=== PATIENT | female | born 1955 | race Two or more races ===

== ENCOUNTER 2020-06-18 08:30 | Day surgery (SDC) | payer OTHER ==
[2020-06-18] VITALS (10 sets, daily range): BP systolic 117–158; BP diastolic 56–70
[~2020-06-18] VITALS: Ht 149.9 cm; Wt 69.4 kg
--- NOTE | 2020-06-18 07:24 | Short Stay Surgery H&P ---
History of Present Illness History of Present Illness Chief Complaint Abdominal pains/GERDS. HPI Mandy Arita is a 64 year old female who was admitted on for Gerds, Gastritis Patient History Allergies: Coded Allergies: No Known Allergies (Unverified , 06/17/20) PAST MEDICAL HISTORY: (1) History of (2) History of breast biopsy Medication History Scheduled [[id number]], Unknown Dose PO BID, (Reported) Scheduled PRN Acetaminophen* (Tylenol Extra Strength*), 500 MG ORAL PRN PRN for Mild Pain/Temp > 100.5, (Reported) Review of Systems Cardiovascular: Reports: no symptoms Respiratory: Reports: no symptoms Skeletal: Reports: trauma Gastrointestinal: Reports: gastro esophageal reflux disease Genitourinary: Reports: no symptoms Neurologic: Reports: no symptoms Endocrine: Reports: no symptoms Hematologic: Reports: no symptoms Physical Exam Skin: normal HENT: normal Heart: normal Lungs: normal Abdomen: abnormal Extremities: normal Genitourinary: normal Plan Plan of Care Upper GI endoscopy with biopsy Preop Interventions None. Summary of Findings See the reports Attestation Are the patient's medical conditions optimized for surgery? Attestation Response: yes Rohit Sales MD Jun 18, 2020 07:24
--- NOTE | 2020-06-18 07:25 | Pre-Procedure Note/Attestation ---
Pre-Procedure Note/Attestation Complete Prior to Procedure Planned Procedure: left Procedure Narrative: Examination of the upper GI tract via endoscopy with obtaining biopsy. Indications for Procedure Pre-Operative Diagnosis: R/O Gastritis/peptic ulcer/esophagitis. Attestation I attest that I discussed the nature of the procedure; its benefits; risks and complications; and alternatives (and the risks and benefits of such alternatives), prior to the procedure, with the patient (or the patient's legal patient registration representative). I attest that, if there was a reasonable possibility of needing a blood transfusion, the patient (or the patient's legal patient registration representative) was given the [facility] standardized written summary, pursuant to the [place] Blood Safety Act ([place] Health and Safety Code # 1645, as amended). I attest that I re-evaluated the patient just prior to the surgery and that there has been no change in the patient's H&P, except as documented below: Rohit Sales MD Jun 18, 2020 07:25
--- NOTE | 2020-06-18 07:27 | Discharge Instructions ---
Discharge Instructions Discharge Instructions Follow up with: No need to follow with this doctor. Call to get report through mail. For Congestive Heart Failure Reminder Report to your physician any weight gain of 5 pounds or more in one week. Rohit Sales MD Jun 18, 2020 07:27
[~2020-06-18 08:30] MED LIST: LR 1000ml 1,000 ML IVLG SCH; TYLENOL EXTRA500 MG ORAL; [UNRECOGNIZED DRUG - CODE] PO
[2020-06-18] MEDS ORDERED: LR 1000ml ONE (09:30)
[2020-06-18] MEDS ORDERED: Lidocaine 1% MPF 10mg/ml 5ml ONE (09:30)
--- NOTE | 2020-06-18 09:47 | Endoscopy Procedure Note ---
Endoscopy Procedure Note General Indication for Procedure: Abdomial pains/GERDs/diarrhea Procedures Performed: EGD - Mild gastrodoudenitis. Biopsies obtained from gastric body, duodenal bulb and descending duodenum. Specimen: yes Pt Tolerated Procedure Well: Yes Estimated Blood Loss: none Anesthesia Anesthesiologist: Ms. Reyes, appliance counselor Anesthesia: moderate sedation Medications Medication Given: see anesthesia record Inserted Devices Implant(s) used?: No Quality Quality of Bowel Preparation: Excellent Was there any complications?: No GI Core Measures 50 yrs or older w/o bx or poly: Not Applicable 10yrs. F/U recommended: Not Applicable If not recommended, why?: Med reason:<3 yrs.: System Reason:<3 yrs.: Rohit Sales MD Jun 18, 2020 09:47
--- NOTE | 2020-06-18 10:00 | Immediate Post-Op Evaluation ---
Immediate Post-Op Evalulation Immediate Post-Op Evalulation Procedure: egd Date of Evaluation: Jun 18, 2020 Time of Evaluation: 09:59 IV Fluids: 500 Blood Pressure Systolic: 127 Blood Pressure Diastolic: 77 Pulse Rate: 68 Respiratory Rate: 14 O2 Sat by Pulse Oximetry: 97 Temperature (Fahrenheit): 97.1 Nausea: No Vomiting: No Complications none Patient Status: awake, reacts, patent Hydration Status: adequate Drug: none MairanriElena clark CRNA Jun 18, 2020 10:00
--- NOTE | 2020-06-18 10:03 | Anethesia Preoperative Eval ---
Anesthesia Pre-op PMH/ROS General Date of Evaluation: Jun 18, 2020 Time of Evaluation: 09:30 Anesthesiologist: katherine ASA Score: ASA 2 Mallampati Score Class I : Soft palate, uvula, fauces, pillars visible Class II: Soft palate, uvula, fauces visible Class III: Soft palate, base of uvula visible Class IV: Only hard plate visible Mallampati Classification: Class II Surgeon: Carolyn Diagnosis: GERD Surgical Procedure: EGD Anesthesia History: none Family History: no anesthesia problems Allergies: Coded Allergies: No Known Allergies (Unverified , 06/18/20) Medications: see eMAR Patient NPO?: Yes NPO Date: Jun 18, 2020 NPO Time: 00:01 Past Medical History Cardiovascular: Denies: HTN, CAD, NC, valve dz, arrhythmia, other Pulmonary: Denies: asthma, COPD, SHAREE, other Gastrointestinal/Genitourinary: Reports: GERD; Denies: CRI, ESRD, other Neurologic/Psychiatric: Denies: dementia, CVA, depression/anxiety, TIA, other Endocrine: Denies: DM, hypothyroidism, steroids, other HEENT: Denies: cataract (L), cataract (R), glaucoma, MINTO (L), MINTO (R), other Hematology/Immune: Denies: anemia, DVT, bleeding disorder, other Musculoskeletal/Integumentary: Denies: OA, RA, DJD, DDD, edema, other Anesthesia Pre-op Phys. Exam Physician Exam Last Vital Signs Date Time Temp Pulse Resp B/P (MAP) Pulse Ox O2 Delivery O2 Flow Rate FiO2 06/18/20 08:59 98.1 63 18 158/70 100 Room Air Constitutional: NAD Neurologic: CN 2-12 intact Cardiovascular: RRR Respiratory: CTA Gastrointestinal: S/NT/ND Airway Exam Mallampati Classification 2 Mallampati Score: Class II MO: full Neck: normal Dentures: no upper, no lower Anesthesia Pre-op A/P Studies Pre-op Studies: EKG - sr Risk Assessment & Plan Assessment: covid neg Plan: mac Pre-Antibiotics Drug: none Elena Doan CRNA Jun 18, 2020 10:03
--- NOTE | 2020-06-18 10:14 | Pre-op HX & Phy Repo 2 SIG ---
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 The patient was recently, approximately four months ago, was seen by me in my office and at this time she was diagnosed with abdominal pain and severe gastroesophageal acid reflux and she was taking nonsteroidal anti-inflammatory agents and she still continues to take because of the injuries that she has had at job site. At this point, I examined the patient today she told me that she is still feeling pain over the upper part of the abdomen as well as different areas of the abdomen as well in all quadrants. She also complains of having severe heartburn with acid reflux over her throat area, which is quite cumbersome. She reports that occasionally these pains are radiating towards the chest area. She mentions that she does not have any difficulty swallowing consistent with dysphagia, never she has been seeing any upper gastrointestinal or lower GI bleeding. However, she does have periods of diarrhea and constipation with increasing abdominal pain, which I also have diagnosed her to be consistent with irritable bowel syndrome of mixed origin. 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 Also, she was experiencing pain over the left arm as well. She has been seen by multiple orthopedic consultants as well at this point and she has received lots of x-rays and CT scans, etc. At this time, the applicant tells me that she is still taking NSAID medications and she has not seen any black stools. She reported that approximately 10 years ago she underwent a colonoscopic examination which was normal, but she has never received any upper gastrointestinal x-rays or upper GI endoscopic examination before today for evaluation of her abdominal pain in the upper part of the abdomen. She denies having lost any major weight. PAST MEDICAL HISTORY: Basically nonsignificant. She denies having any hypertension, diabetes, or major arthritis, pancreatitis, hepatitis, etc. PAST SURGICAL HISTORY: The patient has had and breast biopsy in the past. ALLERGIES: Nonsignificant. FAMILY HISTORY: The patient reports that in the family, mother has diabetes, however, the children are normal. HABITS: She does not smoke neither she drinks alcohol and she does not use illicit drugs. MEDICATIONS: At this time is 800 mg of Motrin and also along with omeprazole and occasionally anti-acids. REVIEW OF SYSTEMS: Basically history of present illness. Currently, the applicant complains of pain over her right leg and dorsal spine and lower back area. Also psychologically, she has been under lots of stress and anxiety and depressive mood subsequent to her work accident and seems that she has aggravation of her GI condition by the stressors as well. Also, neurologically she tells me that she has stiffening, numbness and tingling sensation over her feet. PHYSICAL EXAMINATION: GENERAL: At this time reveals alert, well-oriented, very pleasant female, who does not seem to be in any acute distress. She looks well developed and nourished and somewhat overweight. VITAL SIGNS: Blood pressure is 158/70, temperature 98.1, pulse rate 63 per minute, oxygen saturation 100% on room air, and respiratory rate 18. HEENT: Normocephalic. Pupils are equal in size and reactive to light and accommodation. No visible jaundice. Buccal cavity, tongue midline, well hydrated. No ulcers. NECK: Supple. No JVD or thyromegaly. CHEST: Clear to auscultation and percussion. No rales or rhonchi heard. HEART: S1, S2 normal. Regular rhythm. No gallops or murmur. ABDOMEN: Soft but quite tender all over. There is no hepatosplenomegaly or palpable mass. No rebound phenomenon. EXTREMITIES: Within normal limits. No pretibial edema, cyanosis, or clubbing. CENTRAL NERVOUS SYSTEM: Grossly normal. INITIAL PREOPERATIVE DIAGNOSES: 1. Upper abdominal pain consistent with gastroesophageal reflux aggravated by side effects of NSAIDs, rule out peptic ulcer disease, esophagitis, gastritis. 2. Generalized abdominal pain consistent with irritable bowel syndrome of mixed origin (IBS-M) aggravated by side effects of NSAID medication along with significant anxiety and depression. 3. Significant anxiety and depression. RECOMMENDATION: The applicant at this time seems to be quite stable to undergo the procedure of upper GI endoscopy for which she has been scheduled. She understands the risks and benefits and will sign the consent. Said Dougie Sales DR: EMILIE JOB#: [id number] CC:
--- NOTE | 2020-06-18 10:30 | Operative Note - Dictated ---
DATE OF OPERATION: 06/18/2020 SURGEON: Rohit Sales MD. PROCEDURE: Esophagogastroduodenoscopy with biopsy. PREOPERATIVE DIAGNOSIS: Abdominal pain, history of chronic gastroesophageal reflux and diarrhea. POSTOPERATIVE DIAGNOSIS: Mild gastroduodenitis. Biopsy was taken from the gastric body and duodenal bulb and descending second portion of duodenum. MEDICATION USED: By technical analyst, Elena Doan. INSTRUMENT: GIF Olympus upper GI video endoscope. DESCRIPTION OF PROCEDURE: The patient after arriving in the endoscopy unit, was told about risks and benefits of the procedure, which she accepted and signed informed consent. At this time, she was put on the left lateral decubitus position. After adequate IV sedation, the scope was gently passed through the cricopharyngeal area, was lodged into the upper esophagus and gradually advanced towards gastroesophageal junction. The entire length of esophagus looked completely normal without any pathology such as stricture, polyps, tumors, bleeding site, etc. GE junction was within normal limits. There was no Johnson's mucosa or hiatal hernia. At this time, the scope was advanced into the stomach and gastric cavity was distended with insufflation of air. Gradually, the areas of the fundus and the body and the antrum were examined endoscopically, which revealed evidence of mild erythema consistent with mild gastritis, but there were no polyps, tumors, or ulcers noted. One random biopsy from gastric body obtained and subsequently scope was passed through the pylorus and entered into the duodenal bulb, which revealed evidence of mild erythema consistent with mild duodenitis and one biopsy was obtained from here as well. At this point, the scope was passed into the descending loop of the duodenum and another random biopsy was obtained from there to rule out basically celiac disease if it exist. Finally, the scope was pulled back into the stomach. A retroflexion maneuver was applied and the area of the gastroesophageal junction was examined, which revealed basically normal with minimal erythema consistent with priorly diagnosed mild gastritis. Finally, the scope was pulled out and the procedure was terminated. The patient tolerated the procedure well and left the endoscopy room in good condition. Rohit Sales M.D. DR: EMILIE JOB#: [id number] CC:
--- NOTE | 2020-06-18 10:42 | 48 Hour Post Anesthesia Eval ---
Post Anesthesia Evaluation Procedure: egd Date of Evaluation: Jun 18, 2020 Time of Evaluation: 10:42 Blood Pressure Systolic: 117 0: 63 Pulse Rate: 53 Respiratory Rate: 15 Temperature (Fahrenheit): 97.1 O2 Sat by Pulse Oximetry: 98 Airway: patent Nausea: No Vomiting: No Hydration Status: adequate Cardiopulmonary Status: stable Mental Status/LOC: patient returned to baseline Post-Anesthesia Complications: none Follow-up care needed: N/A Elena Doan CRNA Jun 18, 2020 10:42
== END 2020-06-18 10:45 | disposition home or self-care (01) ==
LOC: GAS 08:30
DX: K29.80 Duodenitis without bleeding (principal); K21.9 Gastro-esophageal reflux disease without esophagitis; F41.9 Anxiety disorder, unspecified; F32.9 Major depressive disorder, single episode, unspecified; B96.81 Helicobacter pylori [H. pylori] as the cause of diseases classified elsewhere
CPT/HCPCS: 43239; 94003; J2704; J7120; U0002; 94150